=== PATIENT | male | born 1960 | race Caucasian/White ===

== ENCOUNTER 2017-01-24 20:00 | Emergency (ER) | payer SELFPAY ==
[2017-01-24 20:24] VITALS: PULSE 80; TEMP 98.3; BMI 28.8
--- NOTE | 2017-01-24 21:02 | PDOC ---
History of Present Illness - General History Source: Patient Exam Limitations: No Limitations - History of Present Illness Initial Comments: 01/24/17 21:33 A portion of this note was documented by scribe services under my direction. I have reviewed the details of the note, within reason, and agree with the documentation. The case summary and management plan written by me. Procedure note laceration repair Laceration anesthetized with 1% lidocaine no epi Laceration irrigated with normal saline approximately 40 mL using a Zerowet Laceration closed with a total of 7 sutures of 5-0 Ethilon Bacitracin and sterile dressing were applied Patient tolerated well Assessment and plan: This is a 56-year-old male who sustained a laceration to his right side of his face when he tripped and fell hitting it on a parking meter. Patient did not pass out he denied any other injuries. The laceration was cleaned and repaired by me Patient discharged home <Kathleen Brewer I - Last Filed: 01/24/17 21:32> - General History Source: Patient Exam Limitations: No Limitations - History of Present Illness Initial Comments: 01/24/17 21:36 The patient is a 56 year old male, with no significant past medical history, who presents to the emergency department s/p sustaining laceration to his chin earlier this afternoon. The patient reports he was at a wake earlier today, when he was walking to his car he tripped and landed his chin into a parking meter. Patient reports sustaining a laceration to the right side of his chin. He reports icing the area, but states he still has mild pain. Patient denies any associated head trauma, weakness, changes in vision, headache, dizziness, numbness, tingling, or LOC. He denies any other injuries. He denies any fever or chills. Patient reports his last tetanus shot was 9 years ago, s/p being bitten by his dog. He reports he takes a 80 mg Aspirin daily, because he is an everyday smoker. PAST MEDICAL HISTORY: No significant history PAST SURGICAL HISTORY: Right Leg ORIF(2004) FAMILY HISTORY: No pertinent history SOCIAL HISTORY: Pt lives with family and is employed. Current everyday smoker. Occasional ETOH use. Marijuana use. MEDICATIONS: Reviewed ALLERGIES: As per nursing notes General: No fevers or chills, no weakness, no weight loss HEENT: No change in vision. No sore throat,. No ear pain CardioVascular: No chest pain or shortness of breath Respiratory: No cough, or wheezing. Gastrointestinal: no nausea, vomiting, diarrhea or constipation, No rectal bleeding Genitourinary: No dysuria, hematuria, or frequency Musculoskeletal: No joint or muscle pain or swelling Neurologic: No headache, vertigo, dizziness or loss of consciousness Psychiatric: No depression Skin: Yes laceration to right chin with mild pain. No rashes or easy bruising Endocrine: No increased thirst or abnormal weight change Allergic: No skin or latex allergy All other systems reviewed and normal GENERAL: The patient is awake, alert, and fully oriented, in no acute distress. HEAD: 3 cm linear laceration to right jaw. Otherwise normal with no other signs of trauma. EYES: Pupils equal, round and reactive to light, extraocular movements intact, sclera anicteric, conjunctiva clear. EXTREMITIES: Normal range of motion, no edema. NEUROLOGICAL: Normal speech, normal gait. PSYCH: Normal mood, normal affect. SKIN: 3 cm linear laceration of the right side of the jaw. No bony tenderness no malocclusion, no infra oral injury. Otherwise warm, dry, normal turgor, no rashes noted. 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 - Surgical History Abdominal Surgery: No Appendectomy: No Cardiac Surgery: No Cholecystectomy: No Lung Surgery: No Neurologic Surgery: No Orthopedic Surgery: Yes (RIGHT LEG ORIF 2004) - Suicide/Smoking/Psychosocial Hx Smoking History: Current every day smoker Have you smoked in the past 12 months: Yes Number of Cigarettes Smoked Daily: 20 Information on smoking cessation initiated: Yes 'Breaking Loose' booklet given: 01/24/17 Hx Alcohol Use: Yes (OCCASIONAL) Drug/Substance Use Hx: Yes (LAST USED 1 WEEK AGO) Substance Use Type: Marijuana Hx Substance Use Treatment: No <Kathleen Brewer I - Last Filed: 01/24/17 21:32> <Conrado Uriostegui - Last Filed: 01/24/17 21:37> - Past Medical History Allergies/Adverse Reactions: Allergies Allergy/AdvReac Type Severity Reaction Status Date / Time No Known Drug Allergies Allergy Verified 01/24/17 20:18 Home Medications: Ambulatory Orders Multivitamin [Multivitamins] 1 each PO DAILY 11/01/11 Aspirin Coated [Ecotrin -] 81 mg PO DAILY 01/24/17 *Physical Exam - Vital Signs Last Vital Signs Temp Pulse Resp BP Pulse Ox 98.3 F 80 16 148/100 98 01/24/17 20:16 01/24/17 20:16 01/24/17 20:16 01/24/17 20:16 01/24/17 20:16 <Kathleen Brewer I - Last Filed: 01/24/17 21:32> - Vital Signs Last Vital Signs Temp Pulse Resp BP Pulse Ox 98.3 F 80 16 150/100 98 01/24/17 20:16 01/24/17 20:16 01/24/17 20:16 01/24/17 21:14 01/24/17 20:16 <Conrado Uriostegui - Last Filed: 01/24/17 21:37> *DC/Admit/Observation/Transfer <Kathleen Brewer I - Last Filed: 01/24/17 21:32> - Attestations Scribe Attestion: 01/24/17 21:36 Documentation prepared by Conrado Uriostegui, acting as medical investigator for Kathleen Brewer MD. <Conrado Uriostegui - Last Filed: 01/24/17 21:37> Diagnosis at time of Disposition: Laceration of chin Qualifiers: Encounter type: initial encounter Qualified Code(s): S01.81XA - Laceration without foreign body of other part of head, initial encounter - Discharge Dispostion Disposition: HOME Condition at time of disposition: Good - Referrals Referrals: Power Arnold MD [Primary Care Provider] - - Patient Instructions Printed Discharge Instructions: DI for Laceration Repair Additional Instructions: Clean the area twice a day with some peroxide and reapply some bacitracin or an antibiotic ointment and a Band-Aid for the next 3-4 days. After that you can leave it open. Do not get it wet for the next 72 hours. Follow-up with your primary care doctor or return to the ER in one week for suture removal. Return to the emergency department immediately with ANY new, persistent or worsening symptoms. Continue any medications as previously prescribed by your physician. You should follow up with your primary doctor as soon as possible regarding today's emergency department visit. . Please make sure your doctor reviews the results of your emergency evaluation. Thank you for coming to the Emergency Department today for your care. It was a pleasure to see you today. Please note that your evaluation is INCOMPLETE until you follow-up with your doctor.
[2017-01-24 21:14] VITALS: BP 150/100
[2017-01-24] MEDS ORDERED: DIPHTH,PERTUSS(ACELL),TET 0.5 ML DISP.SYRIN IM ONE (21:35)
== END 2017-01-24 21:43 | disposition home or self-care (01) ==
LOC: FER 20:00
PROC: 0HQ1XZZ Repair Face Skin, External Approach (ICD-10-PCS; principal; 2017-01-24)
DX: S01.81XA Laceration without foreign body of other part of head, initial encounter (principal); W18.39XA Other fall on same level, initial encounter; Y93.89 Activity, other specified; Y92.410 Unspecified street and highway as the place of occurrence of the external cause
CPT/HCPCS: 90715; 99282-25